=== PATIENT | male | born 1955 | race Caucasian/White ===

== ENCOUNTER 2018-12-12 11:20 | Emergency (ER) | payer MEDICARE ==
[~2018-12-12] VITALS: Ht 182.9 cm; Wt 302.0 kg
[2018-12-12] MEDS ORDERED: BUDE0.5S6 NEB (11:34)
[2018-12-12] MEDS ORDERED: BROV15NE INH (11:34)
[2018-12-12] MEDS ORDERED: SIMV40TA2 PO (11:34)
[2018-12-12] MEDS ORDERED: LOSA50TA88 PO (11:34)
[2018-12-12] MEDS ORDERED: AMLO5TAB6 PO (11:34)
[2018-12-12 11:53] LABS: BASO % 0.3 % (0.0-1.0); EOS # 0.2 10^3/uL (0.0-0.50); EOS % 2.5 % (0.0-3.0); HEMATOCRIT 42.8 % (42.0-52.0); HEMOGLOBIN 14.5 g/dl (13.5-17.5); LYMPH # 1.6 10^3/uL (1.5-4.5); LYMPH % 22.3 % (24.0-44.0); MEAN CORPUSCULAR HEMOGLOBIN 30.9 pg (27.0-33.0); MEAN CORPUSCULAR HGB CONC 33.9 g/dl (32.0-36.5); MEAN CORPUSCULAR VOLUME 91.1 fl (80.0-96.0); MONO # 0.6 10^3/uL (0.0-0.8); MONO % 8.6 % (0.0-5.0); NEUTROPHILS # 4.8 10^3/uL (1.8-7.7); NEUTROPHILS % 65.9 % (36.0-66.0); PLATELET COUNT, AUTOMATED 192 10^3/uL (150-450); WHITE BLOOD COUNT 7.3 10^3/uL (4.0-10.0)
--- NOTE | 2018-12-12 12:04 | REP ---
Chest one-view HISTORY: Chest pain Comparison: None Linear density is present in the left lower lobe consistent with atelectasis or scar. The right lung is clear. The heart is normal in size. The pulmonary vasculature is normal in appearance. Impression: Left lower lobe atelectasis or scar. Electronically Signed by Joon Arellano MD 12/12/2018 11:56 A
[2018-12-12 12:33] LABS: BLOOD UREA NITROGEN 13 MG/DL (7-18); CALCIUM LEVEL 8.9 MG/DL (8.8-10.2); CARBON DIOXIDE LEVEL 28 MEQ/L (21-32); CHLORIDE LEVEL 103 MEQ/L (98-107); CK-MB VALUE MASS < 1.0 NG/ML (<3.6); CPK CREATINE PHOSPHOKINASE 167 U/L (39-308); CREATININE FOR GFR 0.91 MG/DL (0.70-1.30); GLOMERULAR FILTRATION RATE > 60.0 (>49); GLUCOSE, FASTING 192 MG/DL (70-100); POTASSIUM SERUM 3.8 MEQ/L (3.5-5.1); SODIUM LEVEL 139 MEQ/L (136-145); TROPONIN I < 0.02 NG/ML (< 0.10)
[2018-12-12] MEDS ORDERED: KETOROLAC 30 MG/ML VIAL (J1885) IV ONE (12:45)
[2018-12-12] MEDS ORDERED: ISOVUE-370 76% 100ML VIAL (Q9967) As Ordered ONE (12:58)
--- NOTE | 2018-12-12 13:28 | REP ---
CT Head without contrast HISTORY: Altered mental status COMPARISON: None Areas of decreased attenuation are present in the periventricular white matter. This represents small-vessel ischemic disease. There is no intraparenchymal hemorrhage, acute infarct, mass or midline shift. The ventricular system and cortical sulci are dilated consistent with minimal volume loss. There is no extra cerebral collection. There is no fracture. The visualized sinuses are clear. IMPRESSION: 1. Small vessel ischemic disease. 2. Minimal volume loss. Electronically Signed by Joon Arellano MD 12/12/2018 01:20 P
--- NOTE | 2018-12-12 13:47 | REP ---
CT of the chest with IV contrast, CT pulmonary angiography: There are no comparisons. There are no emboli in the pulmonary trunk or central pulmonary arteries. There are no emboli in the pulmonary lobe or segment branches. There are no infiltrates or effusions. There are no masses or nodules. There is a small focal zone of atelectasis adjacent to the dome of the left hemidiaphragm posteriorly. There are no pleural effusions. There is no mediastinal, hilar or axillary lymph node enlargement. Thoracic aorta is unremarkable. Cardiac size is normal. There is no pericardial effusion. Impression: There are no pulmonary emboli. There is a minor zone of atelectasis adjacent to the dome of the left hemidiaphragm posteriorly. Otherwise, negative CT study of the chest. Electronically Signed by Douglas Crabtree MD 12/12/2018 01:39 P
--- NOTE | 2018-12-12 13:55 | REP ---
CT of the abdomen pelvis with IV contrast, without bowel contrast: There are no comparisons. There is wall thickening of the descending colon and sigmoid colon. This is nonspecific but compatible with colitis in the appropriate clinical setting. There are occasional descending colon and sigmoid colon diverticula, however, there is no CT evidence of acute diverticulitis. The visualized lung ramsey are unremarkable. The hepatic parenchyma is unremarkable. There are surgical clips in the gallbladder fossa. The pancreas and spleen are unremarkable. The adrenals are unremarkable. There are two small nonobstructive right renal calculi in the lower pole. There are no left renal calculi. There is no hydronephrosis. The abdominal aorta is unremarkable. The mesentery is unremarkable. Pelvis: The appendix is not identified. The bladder is unremarkable. There is no adenopathy or ascites. Impression: Wall thickening of the descending colon and sigmoid colon compatible with colitis in the appropriate clinical setting. Diverticulosis without diverticulitis. No ascites or adenopathy. No bowel distension or obstruction. Cholecystectomy. Electronically Signed by Douglas Crabtree MD 12/12/2018 01:46 P
[2018-12-12 14:44] LABS: AMPHETAMINES LEVEL URINE NEGATIVE (NEGATIVE); BARBITURATES URINE NEGATIVE (NEGATIVE); BENZODIAZEPINES URINE NEGATIVE (NEGATIVE); CANNABINOIDS URINE NEGATIVE (NEGATIVE); COCAINE METABOLITE URINE NEGATIVE (NEGATIVE); METHADONE URINE NEGATIVE (NEGATIVE); OPIATES URINE NEGATIVE (NEGATIVE); PHENCYCLIDINE URINE NEGATIVE (NEGATIVE)
[2018-12-12] MEDS ORDERED: FLAG500T PO (15:12)
[2018-12-12 15:30] VITALS: BP 121/62
== END 2018-12-12 15:50 | disposition home or self-care (01) ==
LOC: M ED 11:20 → EDBD 11:20 → M ED 15:50
DX: K52.9 Noninfective gastroenteritis and colitis, unspecified (principal); R41.82 Altered mental status, unspecified; R07.81 Pleurodynia; J98.11 Atelectasis; R06.02 Shortness of breath; I10 Essential (primary) hypertension; E78.5 Hyperlipidemia, unspecified; K27.9 Peptic ulcer, site unspecified, unspecified as acute or chronic, without hemorrhage or perforation; Z79.899 Other long term (current) drug therapy; Z79.51 Long term (current) use of inhaled steroids
CPT/HCPCS: 70450; 71045; 71275; 74177; 80048; 80307; 81001; 82550; 82553; 84484; 85025; 93041; 94760; 96374; 99285; J1885; Q9967

== ENCOUNTER → 2019-01-07 | Outpatient (CLI) | payer MEDICARE ==
[~2019-01-07] MED LIST: AMLO5TAB6 PO; BROV15NE INH; BUDE0.5S6 NEB; FLAG500T PO; LOSA50TA88 PO; SIMV40TA2 PO
--- NOTE | 2019-01-07 17:34 | REP ---
FLUOROSCOPIC SNIFF TEST CHEST: 01/07/2019. Clinical history. Evaluate diaphragm. Some elevation right diaphragm on CT and chest x-ray last month. With the patient standing, fluoroscopy performed during a sniff test. There is appropriate excursion of the left diaphragm with the sniff, but the right diaphragm was immobile or had slight paradoxical motion. Impression: 1. Abnormal sniff test with paradoxical motion and immobility of the right diaphragm. Fluoroscopy time 0.4 minutes. Electronically Signed by Amol Mustafa MD 01/07/2019 10:03 P
== END ==
LOC: M RAD 14:07
PROVIDERS: ATTEND Physician Assistant
DX: R94.2 Abnormal results of pulmonary function studies (principal); J98.6 Disorders of diaphragm